=== PATIENT | male | born 1945 | race Caucasian/White ===

== ENCOUNTER 2018-08-17 11:31 | Day surgery (SDC) | payer MEDICARE ==
--- NOTE | 2018-08-17 08:38 | HP ---
DATE OF SURGERY: 08/17/2018 HISTORY OF PRESENT ILLNESS: The patient is a 72 year-old with enlarging lesion on his face or cyst in need of excision as well as recurrent right inguinal hernia. PAST MEDICAL HISTORY: He denied any chronic illnesses. PAST SURGICAL HISTORY: Hernia repair in a [place] back in 2003 by another surgeon. MEDICATIONS: B12 daily. ALLERGIES: NKDA. FAMILY HISTORY: Colon cancer, breast cancer, Alzheimer's. SOCIAL HISTORY: No smoking or alcohol abuse. REVIEW OF SYSTEMS: Twelve systems reviewed. No chest pain or palpitations other systems negative or noncontributory as above and per preadmission questionnaire. PHYSICAL EXAMINATION: GENERAL: No acute distress. HEENT: Sclerae nonicteric. Face area has a lesion or cyst may require possible skin graft or flap as it is enlarging on his left face. NECK: No JVD. CHEST: Equal excursion, nonlabored breathing. CVS: Regular rate and rhythm. ABDOMEN: Soft. He has had a recurrent right inguinal hernia with previous repair in [place] in the past. EXTREMITIES: No significant edema. NEURO: Alert, oriented, moving extremities symmetrically. No gross motor deficits noted. IMPRESSION: 1) Risk and benefits explained in detail but not limited to bleeding or infection regarding the hernia, risk of trocar injury or hernia, risk of bowel, bladder or blood vessel injury, small risk of possible need to convert to open procedure, general risk of aches, pains, burning, numbness lower abdomen, groin, thigh or scrotal area possible oil heaterman or chronic in nature. Overall risk of hernia recurrence and the fact that he has already a recurrence at this point. Risk of urinary retention possibly requiring temporary catheter, risk of mesh irritating the bladder possibly requiring removal, general risk of anesthesia, deep venous thrombosis, pulmonary embolism, pneumonia. 2) Regarding the face lesion general risk of bleeding or infection, the fact that he would have a scar in the area, possible need for flap or skin graft, risk of facial nerve irritation, scar formation or injury, risk of droop lip, chewing weakness, dry eye possibly requiring other procedures, general risk of anesthesia, deep venous thrombosis, pulmonary embolism, pneumonia, risk of aches and pains. PLAN: He understands all of the above but not limited to, will proceed with laparoscopic repair of recurrent right inguinal hernia with mesh possible open. Excisional face lesion or cyst possible skin graft or flap as an outpatient.
[~2018-08-17 11:31] MED LIST: CEFAZOLIN 2 GM-D5W BAG** 2 GM/50 ML ML IV ONE; Lactated Ringers 1,000 ML IV ONE; Lactated Ringers 1,000 ML IV SCH; MINERAL OIL LIGHT 10 ML FOR SURGERY ONE; Sensorcaine 0.25% 10 ML ONE
[2018-08-17] MEDS ORDERED: BRIDION 200MG/2ML IV ONE (11:32)
[2018-08-17] MEDS ORDERED: Ephedrine Sulfate 50 MG/ML IV ONE (11:32)
[2018-08-17] MEDS ORDERED: Decadron 4 MG INJ IV ONE (11:32)
[2018-08-17] MEDS ORDERED: Quelicin Fliptop 200 MG/10 ML IV ONE (11:32)
[2018-08-17] MEDS ORDERED: Naropin 0.5% 30 ML VIAL IJ ONE (11:32)
[2018-08-17] MEDS ORDERED: TORAdol 30 mg Injection IV ONE (11:32)
[2018-08-17] MEDS ORDERED: SUBLIMAZE 100 MCG/2 ML IV ONE (11:32)
[2018-08-17] MEDS ORDERED: Zofran 4 MG/2 ML VIAL IV ONE (11:32)
[2018-08-17] MEDS ORDERED: DILAUDID 2 MG INJECTION IV ONE (11:32)
[2018-08-17] MEDS ORDERED: Zemuron 100 MG/10 ML IV ONE (11:32)
[2018-08-17] MEDS ORDERED: DIPRIVAN 200 MG/20 ML IV ONE (11:32)
[2018-08-17] MEDS ORDERED: Lactated Ringers 1,000 ML IV ONE (15:17)
[2018-08-17] MEDS ORDERED: Sensorcaine 0.25% 10 ML ONE (15:21)
[2018-08-17 16:41] VITALS: O2SAT 96
[2018-08-17 16:56] LABS: Appearance SLIGHTLY CLOUDY (CLEAR); Bilirubin NEGATIVE (NEGATIVE); Blood NEGATIVE Ery/ul (0-5); Glucose NEGATIVE (NEGATIVE); Ketones TRACE (NEGATIVE); Leukocyte Esterase NEGATIVE (NEGATIVE); Nitrite NEGATIVE (NEGATIVE); Protein,Urine Dip NEGATIVE (Negative); Urobilinogen NEGATIVE mg/dL (0-1)
[2018-08-17] MEDS ORDERED: NORCO 5/325 MG ONE (17:40)
[2018-08-17] MEDS ORDERED: NORCO 5/325 MG PO PRN (17:41)
[2018-08-17 18:40] VITALS: BP 143/78; PULSE 75
--- NOTE | 2018-08-18 07:49 | OP ---
SURGERY DATE/TIME: 08/17/2018 1333 PREOPERATIVE DIAGNOSES: 1) Recurrent right inguinal hernia. 2) Ulcerated nonhealing lesion left face. POSTOPERATIVE DIAGNOSIS: Large right inguinal hernia (required conversion to open procedure to limit the risk of recurrence). PROCEDURES: 1) Laparoscopy converted to open repair recurrent right inguinal hernia with mesh. 2) Excisional biopsy left face ulcerated lesion or cyst (approximately 2.2 cm with margins with local advancement flap closure). SURGEON: Dr. Kumar Thurston. ANESTHESIA: General. ESTIMATED BLOOD LOSS: Minimal. INDICATIONS: As noted above. Risks and benefits explained in detail and not limited to. The site is confirmed in the holding area. He had some sort of drainage tube in and draining back towards behind his ear before. I discussed with him preoperatively. We did take this lesion off the skin but there was some unusual draining tube that had failed to heal and will need to follow up with his surgeon who did that procedure in the past. He understood. He also understood if we try to fix his laparoscopically it may require open procedure. He understood and agreed to the plan. Risk as noted per the preoperative office visit and dictated H&P but not limited to and consent obtained. DESCRIPTION OF PROCEDURE AND FINDINGS: The patient is taken to the operating room. General anesthesia induced. Abdomen prepped and draped in usual sterile fashion. After official time out and no disagreement with planned procedure, a transverse incision made supraumbilical area. Fascia grasped and pulled upward. Veress needle inserted tested with saline. Pneumoperitoneum accomplished. Opening pressure 0 to 15. A 5 mm bladeless port and camera inserted without difficulty. On laparoscopic view it was evident that he had no integrity to his right inguinal floor. Although technically could attempt laparoscopic repair it is felt that given the size of his defect and no real integrity of the inguinal floor it was felt that it would be much better to convert to open procedure to allow for suture re-approximating the fascia down here to minimize the overall risk of recurrence for laparoscopic alone it was felt this would be quite high risk of recurrence. Therefore it was safest to convert to an open procedure. Right inguinal incision made. Dissection carried down through external oblique. Cord mobilized up off the pubic tubercle with Evelyn drain. Cremasteric fibers carefully protecting visible ilioinguinal and iliohypogastric nerves isolating the CO2 insufflator hernia sac which was then opened, decompressing pneumoperitoneum. This took quite some time. It was just quite a sticky hernia but it was slowly and carefully from surrounding cord tissues, vas, vessels and cremasteric fibers dissecting back towards the very large inguinal ring as he had no integrity of this indirect space. Once this was accomplished again there was no incarcerated contents at this point. The area was then closed with 0 Prolene purse string. A segment of the hernia sac passed off. The very distal end towards the scrotal area was left open. Good hemostasis noted. Once this hernia sac was then high ligated proceeded with repairing the inguinal floor with interrupted 0 PDS in the aponeurosis, the internal oblique and conjoin tendon back down towards the transversalis fascia along the inguinal ligament in a tension free manner up to what was felt to be a more normal size internal ring. Once this was accomplished felt he would benefit from mesh repair. A 2 x 4 piece of mesh cut to appropriate dimension with keyhole cut secured to the fascia around the pubic tubercle with 0 Prolene run along Emanuel's ligament and then up along the shelving portion of the inguinal ligament with 0 Prolene past the internal ring. 0 Prolene was used to transfix the rectus fascia medially and 0 Vicryl used to transfix to aponeurosis internal oblique superiorly avoiding the visible iliohypogastric nerve branches. Tails of the mesh tacked together laterally with 0 Prolene. A new internal ring was felt to be not too tight. The mesh is nice and flat and tension-free. Good hemostasis is noted. The external oblique closed with 0 Vicryl. Anil closed with 3-0 Vicryl. Subcu closed with 3-0 Vicryl. Skin closed with 3-0 Vicryl. Steri-Strips and sterile dressing applied. 0.25% Marcaine local injected along the skin incision back towards the origin of the inguinal nerve back towards the anterior iliac spine. Anesthesia did a tap block later for pain control. The staff then re-prepped and draped for the face area of nonhealing lesion of left face, this was accomplished. Tried to loosen the skin. It was felt it would be best to go ahead and do a local advancement flap rather than skin graft as the color was not the same as the surrounding skin. Therefore in spindle shape fashion dissection was carried around the specimen that was about 2.2 cm with margins an ulcerating lesion whether some unusual cyst versus some other ulcerating lesion carefully dissected off the underlying fascia. It was felt that going any deeper would affect the eyelid function and muscles. The specimen was passed off for pathology. Again, it measured about 2.2 cm with margins. It was then closed with interrupted 3-0 Vicryl closing the deep superficial subcu. Skin closed with 5-0 Vicryl in running subcuticular fashion. Steri-Strips and sterile dressing applied. 0.25% Marcaine local injected along the area. The patient tolerated the procedure well. There were no immediate complications. I will see if there is family available to discuss the findings with. I will see him back in the office in a week or two.
== END 2018-08-17 18:38 | disposition home or self-care (01) ==
LOC: SDC 11:31
PROVIDERS: ATTEND Surgery
DX: K40.91 Unilateral inguinal hernia, without obstruction or gangrene, recurrent (principal); L98.9 Disorder of the skin and subcutaneous tissue, unspecified; Z80.0 Family history of malignant neoplasm of digestive organs; Z80.3 Family history of malignant neoplasm of breast; Z87.891 Personal history of nicotine dependence
CPT/HCPCS: 64486; 76937; 76942; 81001; 87086; 88302; 88304; 94250; 99100; C1781; J0330; J0690; J1100; J1170; J1885; J2405; J2704; J2795; J3010; A9270-GY